=== PATIENT | female | born 2000 | race Caucasian/White ===

== ENCOUNTER 2024-10-31 14:08 | Inpatient (IN) | payer MEDICAID, SELFPAY ==
--- OUTSIDE RECORDS SUMMARY | 2024-10-31 14:21 | XMS_ITS | Encounter Summary ---
Author Organization [facility] Address [address] [place] [id number] Phone Care Team Providers Care Book Illustrator Name Role Phone Unavailable Primary Care Provider Unavailabl e Reason for Visit * Reason Comments Med Refill Encounter Details Date Type Department Care Team ([facility] st Contact Info) Description 07/03/2019 Refill [facility] [address] [place] [id number] Sofya Alvarez MD [address] [place] [address] [phone] Dysmenorrhea Social History Tobacco Use Types Packs/Day Years Used Date Smoking Tobacco: Some Days Smokeless Tobacco: Never Comments:never smoker Alcohol Use Standard Drinks/Week Comments No 0 (1 standard drink = 0.6 oz pur e alcohol) Hunger/Food Answer Date Recorded No 04/13/2019 Stable Housing Answer Date Recorded No 06/10/2019 Transportation Concerns Answer Date Rec orded No 04/13/2019 Hazards in Home Answer Date Recorded No 04/13/2019 Financing Utilities Answer Date Recorde d No 04/13/2019 Safety at Home Answer Date Recorded No 04/13/2019 Outside Support Answer Date Recorded No 04/13/2019 Understanding Health Concerns Answer Da te Recorded No 04/13/2019 Financing Health Concerns Answer Date R ecorded No 04/13/2019 Missing School or Work Answer Date Gregory rded No 04/13/2019 Comments Unknown Sex and Gender Information Value Date Recorded Sex Assigned at Female 04/13/2019 8:32 AM EST Legal Sex Female 8:08 PM EST Gender Identity Female 04/13/2019 8:32 AM EST Sexual Orientation Straight 04/13/2019 8: 32 AM EST documented as of this encounter Miscellaneous Notes * Telephone Encounter - Sofya Alvarez MD - 07/03/2019 6:20 PM EST On a different BCP . * Telephone Encounter - Betty Parkinson RN - 07/03/2019 11:01 AM EST CPE 04/13/19. Sending to for approval and scripting. documented in this encounter Plan of Treatment Not on file documented as of this encounter Visit Diagnoses Diagnosis Dysmenorrhea documented in this encounter
[2024-10-31 14:53] VITALS: BP 128/84; PULSE 105; RESP 16; TEMP 37.4; O2SAT 105
[2024-10-31 14:56] VITALS: BMI 18.8
--- NOTE | 2024-10-31 16:19 | P.CONHOSP_ITS ---
History of Present Illness Data of Consult Service Date: 10/31/24 Primary Care Provider: Unknown Physician HPI Reason for consult: Medical H and P 24-year-old female with a past medical history of depression and anxiety, presented to [facility] for an evaluation of increased depression and suicidal ideation. She is admitted inpatient psychiatric unit for further care. Reports a social history of EtOH. History of cocaine use last use 4 years ago. On review her CBC and BMP were both within normal limits negative HGB. Negative tox screen. She denies any health concerns at this time. Denies any past medical history other than what is mentioned. Review of Systems Review of Systems: Denies any shortness of breath, chest pain, dizziness, lightheadedness, abdominal pain or discomfort, nausea vomiting or diarrhea PMFSH Date of last menstrual period: 10/30/24 Patient : No Family History (Updated 10/31/24 @ 16:22 by Trisha Jimenez DNP) Mother ETOH abuse Social History Household Members: Family Household Members Other:: 3 Housing: House Do you presently have visiting nurse or other home services: No Patient Tobacco Use Status: Current everyday Tobacco user Smoked in Last 30 Days: Yes e-Cigarette/Vaping Use: Currently Using Frequency of e-Cigarette/Vaping Use: daily Patient Interested in Nicotine Replacement: No Patient Given Instructions on How to Stop Smoking: Yes Date Education Initiated: 10/31/24 Second Hand Smoke Exposure: No Have you been hit, kicked, punched, or otherwise hurt by someone within the past year? If so, by whom?: No Do you feel safe in your current relationship?: No Current Relationship Is there a partner from a previous relationship who is making you feel unsafe now?: No Are you made to feel afraid or neglected: No Spiritual Healthcare Practices: None Sikh Healthcare Practices: None Cultural Healthcare Practices: none Advance Directives: No Advance Directives Information Provided: No Do you have a plan to hurt others: No Plan Recently lost weight without trying: No Eating poorly because of decreased appetite: No Nutrition Risks: No Nutritional Risk Patient : No : No Poor oral hygiene: No Meds Allergies Allergy/AdvReac Type Severity Reaction Status Date / Time No Known Allergies Allergy Verified 10/31/24 14:48 Active Medications: Current Medications Acetaminophen (Acetaminophen 325 Mg Tablet) 650 mg PO Q6H PRN PRN Reason: Headache/Pain, Scale 1-10 Al Hydroxide/Mg Hydroxide (Magnesium Hydrox/Alum Hydrox 30 Ml Oral.Susp) 30 ml PO Q6H PRN PRN Reason: Heartburn/Nausea Hydroxyzine HCl (Hydroxyzine Hcl 25 Mg Tablet) 25 mg PO Q6H PRN PRN Reason: mild anxiety Magnesium Hydroxide (Milk Of Magnesia 30 Ml Oral.Susp) 30 ml PO DAILY PRN PRN Reason: Constipation Nicotine (Nicotine 21 Mg Patch.Td24) 21 mg TRANSDERMA DAILY ESTHER Nicotine Polacrilex (Nicotine Polacrilex 2 Mg Gum) 4 mg BUCCAL Q2H PRN PRN Reason: Nicotine Cravings Olanzapine (Olanzapine 5 Mg Tablet) 5 mg PO Q4H PRN PRN Reason: agitation Trazodone HCl (Trazodone Hcl 50 Mg Tablet) 50 mg PO BEDTIME MRX1 PRN PRN Reason: Insomnia Physical Exam Vital Signs and Narrative: Vital Signs: Last Vital Signs Temp 99.3 F 10/31/24 14:53 Pulse 105 H 10/31/24 14:53 Resp 16 10/31/24 14:53 BP 128/84 10/31/24 14:53 Pulse Ox 105 H 10/31/24 14:53 O2 Del Method Room Air 10/31/24 14:53 BMI result Body Mass Index 18.8 Alert and oriented X3, able to give good history. Neuro: CN II-X11 intact, no deficits, visual acuity intact EYES: PERRLA, EOM intact ENT: hearing intact, uvula midline, lips moist Cardiac: S1 S2 RRR, no edema in Lower ext Pulmonary: lungs clear to auscultation, No increased WOB. Abdominal: BS active in all 4 quadrants, no guarding or tenderness MSK: Strength 5/5 upper and lower extremities : Deferred Extremities: Moves all extremity Psych: mood stable, quiet and cooperative Skin: Warm and dry, Intact Assessment and Plan (1) Depression: Status: Acute Plan Depression and anxiety/SI Treatment per psychiatry team Thank you for allowing me to participate in the care of this patient. Signing off at this time. Please reconsult of any acute complaints or issues arise
--- NOTE | 2024-10-31 16:34 | PC.ADMIT ---
Nursing admission note: 24 year old female DX;
--- NOTE | 2024-10-31 16:35 | PC.ADMIT ---
Nursing admission note: 24 year old female DX: depression, unspecified. Referred for treatment by [facility]. Patient had presented to [facility] for evaluation of SI. Aida self presented to the hospital requesting help with her increasing depression. Reported +SI with concern she would act on it. Patient signed conditional voluntary for admission. A+O x3. Patient calm and cooperative with admission process. Good eye contact, good attn to ADL. Engaged easily, presented with depressed mood, congruent affect. Reports depression is 10/10 with continued suicidal thoughts. Thinks about driving off the road. Agrees to engage staff if feeling she will act on ideation on unit. Reports feeling depressed for a long time . Endorses anergia, avolition. Difficulty with concentration, distractibility, poor focus. Thoughts linear and organized during admission process. Endorses anxiety, stating at times, she will need to touch surfaces x amount of times for thought to stop. Reports she has health anxiety worries she has something . Reports she will get mad at work if things are not in certain order. Reports at night she will feel like someone is watching her. Feels like she hears her name being called. At times feels like spiders are crawling on her. 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 Reports poor sleep, difficulty falling and maintaining sleep. Denies appetite disturbances. Speech is soft in tone. Denies drug use, history of cocaine last use 4 years ago. Social use of alcohol. TOX screen negative. Uses vape, declines NRT at this time. HCG negative. Goal for admission is to be evaluated, placed on suggested medications, and be referred for aftercare. NKA. No acute medical problems reported. See nursing assessment, risis evaluation for complete details.
[2024-10-31 20:00] VITALS: BP 126/62; PULSE 75; RESP 16; TEMP 37.1; O2SAT 97
[2024-11-01 07:20] VITALS: BP 105/55; PULSE 89; RESP 16; TEMP 36.8; O2SAT 97
[2024-11-01 08:32] LABS: Alanine Aminotransferase 6 U/L (0-31); Albumin Level 4.4 g/dL (3.5-5.0); Alkaline Phosphatase 49 U/L (39-117); Anion Gap 15 (12-20); Aspartate Amino Transferase 17 U/L (5-31); Bilirubin Total 0.8 mg/dL (0.0-1.0); Blood Urea Nitrogen 21 mg/dL (9-16); Calcium 9.2 mg/dL (8.4-10.2); Carbon Dioxide 22 mmol/L (22-29); Chloride 106 mmol/L (96-108); Cholesterol 164 mg/dL (<200); Estimated Glomerular Filt Rate > 60; Glucose Random 65 mg/dL (60-115); HDL Cholesterol 43 mg/dL (>40); LDL Cholesterol Calculated 102 mg/dL (<100); Potassium 3.8 mmol/L (3.3-5.1); Sodium 139 mmol/L (135-145); Total Protein 7.2 g/dL (6.5-8.0); Triglycerides 96 mg/dL (<150)
[2024-11-01 08:33] LABS: Estimated Average Glucose 103 mg/dL; Hemoglobin A1C 121.4762 umol/L; Hemoglobin A1c % 5.2 % (<6.0); Total Hemoglobin (HGBA1C) 3677.0776 umol/L
[2024-11-01] MEDS: Nicotine 21 MG PATCH.TD24 TRANSDERMA (09:44)
--- NOTE | 2024-11-01 09:59 | P.PNPSI_ITS ---
Subjective Subjective Date of Service: 11/01/24 Reason For Visit: SI Interim History: pt arrived on unit at 1417 yesterday afternoon, admission orders and CV completed by Mila Miranda NP, yesterday afternoon. being seen in coverage today for HARSH Miranda. Hx and Sx reviewed with pt. pt reporting h/o OCD Sx as well as depression and anxiety. recently having thoughts such as, touch this surface and you won't get sick. after touching the surface the thoughts stop and anxiety is relieved. she reported having tried lexapro in her teens, which she did not find terribly helpful, and then prozac more recently, also not apparently terribly helpful. she stopped all medication about 9 months ago due to feeling lack of efficacy. she reports she was on prozac for 2-3 years and started at 20 mg daily and increased to 30 mg daily at the highest. she was educated re typical need for high-dose SSRIs to address OCD Sx. AH telling her to fall on her knife noted, pt reported that only developing in recent months and never before. MD suggested possibility of using low-dose atypical antipsychotic to address AH as well as potentially for antipsychotic efficacy. plan made to start prozac 20 for the next 2 days, then increase to 40 mg daily. pt is to consider whether to take a more conservative approach as mentioned or to add abilify to the prozac prior to discharge. pt aware she will be working with Ruth and to expect to meet with her tomorrow. Mental Status Exam Mental Status Exam Narrative: adequately dressed and groomed. cooperative. no PMA/PMR. speech nml rate, amount, latency. decr loudness and prosody. thoughts linear and logical without evidence of delusions or paranoia. affect mildly flexible, normo- intense, non-labile. mood all right. denies SI/HI/AVH today. Diagnostics Vital Signs (24Hr): Vital Signs - 24 hr 10/31/24 14:53 10/31/24 20:00 11/01/24 07:20 Temperature 99.3 F 98.7 F 98.2 F Pulse Rate 105 H 75 89 Respiratory Rate 16 16 16 Blood Pressure 128/84 126/62 105/55 L Pulse Oximetry 105 H 97 97 Oxygen Delivery Method Room Air Room Air Room Air BMI result Body Mass Index 18.8 Labs 11/01/24 07:46 Labs: Laboratory Results - last 48 hr 11/01/24 07:46 Sodium 139 Potassium 3.8 Chloride 106 Carbon Dioxide 22 Anion Gap 15 BUN 21 H Creatinine 0.67 Estim Creat Clear Calc 103.0 Estimated GFR > 60 Random Glucose 65 Estimat Average Glucose 103 Hemoglobin A1c % 5.2 Calcium 9.2 Total Bilirubin 0.8 AST 17 ALT 6 Alkaline Phosphatase 49 Total Protein 7.2 Albumin 4.4 Triglycerides 96 Cholesterol 164 LDL Cholesterol, Calc 102 H HDL Cholesterol 43 Medications Medications Current Medications Acetaminophen (Acetaminophen 325 Mg Tablet) 650 mg PO Q6H PRN PRN Reason: Headache/Pain, Scale 1-10 Al Hydroxide/Mg Hydroxide (Magnesium Hydrox/Alum Hydrox 30 Ml Oral.Susp) 30 ml PO Q6H PRN PRN Reason: Heartburn/Nausea Hydroxyzine HCl (Hydroxyzine Hcl 25 Mg Tablet) 25 mg PO Q6H PRN PRN Reason: mild anxiety Magnesium Hydroxide (Milk Of Magnesia 30 Ml Oral.Susp) 30 ml PO DAILY PRN PRN Reason: Constipation Nicotine (Nicotine 21 Mg Patch.Td24) 21 mg TRANSDERMA DAILY ESTHER Last Admin: 11/01/24 09:44 Dose: 21 mg Nicotine Polacrilex (Nicotine Polacrilex 2 Mg Gum) 4 mg BUCCAL Q2H PRN PRN Reason: Nicotine Cravings Olanzapine (Olanzapine 5 Mg Tablet) 5 mg PO Q4H PRN PRN Reason: agitation Trazodone HCl (Trazodone Hcl 50 Mg Tablet) 50 mg PO BEDTIME MRX1 PRN PRN Reason: Insomnia Allergies Allergies Allergy/AdvReac Type Severity Reaction Status Date / Time No Known Allergies Allergy Verified 10/31/24 14:48 Assessment & Plan Assessment & Plan (1) Depression: Status: Acute Code(s): F32.A - Depression, unspecified Plan start prozac 20 mg x2 days, then increase to 40 mg daily. T/C augmentation with low-dose atypical antipsychotic such as abilify. Reason for continued inpatient stay Substantial Risk for: harm to self and inability to function Time Spent With Patient Time: Total time managing care of this patient today __55__ minutes.
[2024-11-01] MEDS: FLUoxetine HCl 20 MG CAPSULE PO (14:02)
[2024-11-01 21:08] VITALS: BP 118/63; PULSE 104; RESP 16; O2SAT 98
[2024-11-01] MEDS: traZODone HCL 50 MG TABLET PO (21:19)
[2024-11-02 07:00] VITALS: BMI 18.6
[2024-11-02 07:40] VITALS: BP 110/63; PULSE 90; RESP 16; TEMP 37.1; O2SAT 95
[2024-11-02] MEDS: FLUoxetine HCl 20 MG CAPSULE PO (08:25)
[2024-11-02] MEDS: Nicotine 21 MG PATCH.TD24 TRANSDERMA (08:25)
--- NOTE | 2024-11-02 15:38 | P.HPPS_ITS ---
[facility] Date of Service: 11/02/24 Chief Complaint: SI Sources of Information: patient interviewed, chart reviewed and crisis/core team assessment reviewed HPI Subjective Notes: Alexander Warning and Conditional Voluntary Narrative: Patient is a 24-year-old female with history of MDD and PTSD who self presented to ER due to suicidal ideation secondary to increased depression. Per crisis report, patient reported to hospital requesting help with her increasing depression. She reports suicidal ideation with concerned that she will act on this. Patient reports suicidal thoughts come and go. Denies HI/VH/AH. She reports normal sleep and appetite. Patient reports she has been experiencing depression for years which has worsened over the past couple of years. She denies any specific trigger to increased depression. She also reports suicidal ideation for many years . Denies any plan or intent. 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 She is unable to determine if this is a hallucination or intrusive thought. History of taking Lexapro and Zoloft. Utox negative. During admission assessment, patient presents alert and oriented x3. Calm and cooperative. Patient reports for the past year she has been feeling more depressed than usual. Patient stated, I know it's not right but, the suicide thoughts keep popping into my head. I'm stressed with work and life. I'm disappointed in myself for not going to college. I have OCD thoughts that I have to touch something a certain amount of times to not get sick . Patient reports she would like to find a therapist near her home. Patient stated, I need to learn to not work so much. My family and friends keeping going. I know that my life is worth living . Patient denies SI/HI/VH/AH. Patient signed 3 day notice that is up on 11/03/2024. Past Psychiatric History: This is patient's 1st inpatient psychiatric hospitalization. Outpatient psychiatrist: Dr. Wheeler Does not have outpatient therapist. Denies history of suicide attempts. History of cutting in high school. Medical Evaluation Reviewed: Yes PMF Family History: Mother: Depression Social History: Lives with mother, brother and sister. Single. No kids. Full- time product support manager. Substance History: History of cocaine use. Four years sober. Denies any other substance use. U tox negative. Trauma History: Yes Diagnostics Vital Signs (24Hr): Vital Signs - 24 hr 11/01/24 21:08 11/02/24 07:40 Temperature 98.7 F Pulse Rate 104 H 90 Respiratory Rate 16 16 Blood Pressure 118/63 110/63 Pulse Oximetry 98 95 Oxygen Delivery Method Room Air Room Air BMI result Body Mass Index 18.6 Labs 11/01/24 07:46 Labs: Laboratory Results - last 48 hr 11/01/24 07:46 Sodium 139 Potassium 3.8 Chloride 106 Carbon Dioxide 22 Anion Gap 15 BUN 21 H Creatinine 0.67 Estim Creat Clear Calc 103.0 Estimated GFR > 60 Random Glucose 65 Estimat Average Glucose 103 Hemoglobin A1c % 5.2 Calcium 9.2 Total Bilirubin 0.8 AST 17 ALT 6 Alkaline Phosphatase 49 Total Protein 7.2 Albumin 4.4 Triglycerides 96 Cholesterol 164 LDL Cholesterol, Calc 102 H HDL Cholesterol 43 Meds/Allergies Meds Home Medications ?Medication ?Instructions ?Recorded ?Confirmed ?Type No Known Home Meds 10/31/24 10/31/24 History Allergies Allergies Allergy/AdvReac Type Severity Reaction Status Date / Time No Known Allergies Allergy Verified 10/31/24 14:48 Mental Status Exam Mental Status Exam Narrative: Pt is alert and oriented; behavior is cooperative and calm; dressed in casual attire; mood is described as depressed ; eye contact appropriate; Speech is normal rate, volume and not pressured; thought process is organized; Thought content is on tx/discharge; denies SI/HI/VH/AH. Assessment & Plan Assessment & Plan (1) MDD (major depressive disorder): Status: Acute Code(s): F32.9 - Major depressive disorder, single episode, unspecified (2) PTSD (post-traumatic stress disorder): Status: Acute Code(s): F43.10 - Post-traumatic stress disorder, unspecified Plan Patient is a 24-year-old female with history of MDD and PTSD who self presented to ER due to suicidal ideation secondary to increased depression. Plan: CV 15 minute safety checks Started on Prozac 40mg PO daily by Dr. Walton Obtain collateral Encourage groups Discharge planning Patient educated on: diagnosis, medication risk/benefits and therapeutic strategies Reason for continued inpatient stay Substantial Risk for: med/psych decompensation Statement Statement: I have reviewed the history and physical and performed a pertinent examination on my patient. No changes have occurred unless specified. If the History and Physical was not performed prior to admission, the Hospitalist's service will be consulted for completing the admission physical. Time Spent With Patient Time: Total time managing care of this patient today _60___ minutes.
[2024-11-02 19:44] VITALS: BP 110/64; PULSE 73; RESP 16; TEMP 37.6; O2SAT 97
[2024-11-02] MEDS: traZODone HCL 50 MG TABLET PO (22:10)
[2024-11-03 07:59] VITALS: BP 130/60; PULSE 124; RESP 18; TEMP 36.9; O2SAT 97
[2024-11-03] MEDS: FLUoxetine HCl 20 MG CAPSULE 40 MG PO (08:04)
--- NOTE | 2024-11-03 09:39 | PM.PSYDC ---
DS: Providers Provider Date of Service: 11/03/24 Date of admission: 10/31/24 14:08 Date of discharge: 11/03/24 Primary care physician: Unknown Physician Admitting clinician: Mila Miranda Attending physician on admission: Germán Becerra Consults: 10/31/24 14:48 Consult to Hospitalist Routine Comment: Consulting Provider: [facility] Reason For Exam: new pt, H&P Attending physician on discharge: Germán Becerra Discharging clinician: Mila Miranda DS: Diagnosis Discharge Diagnosis (1) MDD (major depressive disorder): Status: Acute (2) PTSD (post-traumatic stress disorder): Status: Acute DS: Medications Discharge Medications Home Medications: Home Medications ?Medication ?Instructions ?Recorded ?Confirmed No Known Home Meds 10/31/24 10/31/24 Mental Status Exam Mental Status Exam Narrative: Pt is alert and oriented; behavior is cooperative and calm; dressed in casual attire; mood is described as good ; eye contact appropriate; Speech is normal rate, volume and not pressured; thought process is organized; Thought content is on tx/discharge; denies SI/HI/VH/AH. Data Data Completed and Pending Completed studies during hospitalization [Text1]: 11/01/24 07:46 Sodium 139 Potassium 3.8 Chloride 106 Carbon Dioxide 22 Anion Gap 15 BUN 21 H Creatinine 0.67 Estim Creat Clear Calc 103.0 Estimated GFR > 60 Random Glucose 65 Estimat Average Glucose 103 Hemoglobin A1c % 5.2 Calcium 9.2 Total Bilirubin 0.8 AST 17 ALT 6 Alkaline Phosphatase 49 Total Protein 7.2 Albumin 4.4 Triglycerides 96 Cholesterol 164 LDL Cholesterol, Calc 102 H HDL Cholesterol 43 DS: Summary Hospital Course Hospital Course: Patient is a 24-year-old female with history of MDD and PTSD who self presented to ER due to suicidal ideation secondary to increased depression. Per crisis report, patient reported to hospital requesting help with her increasing depression. She reports suicidal ideation with concerned that she will act on this. Patient reports suicidal thoughts come and go. Denies HI/VH/AH. She reports normal sleep and appetite. Patient reports she has been experiencing depression for years which has worsened over the past couple of years. She denies any specific trigger to increased depression. She also reports suicidal ideation for many years . Denies any plan or intent. 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 She is unable to determine if this is a hallucination or intrusive thought. History of taking Lexapro and Zoloft. Utox negative. During admission assessment, patient presents alert and oriented x3. Calm and cooperative. Patient reports for the past year she has been feeling more depressed than usual. Patient stated, I know it's not right but, the suicide thoughts keep popping into my head. I'm stressed with work and life. I'm disappointed in myself for not going to college. I have OCD thoughts that I have to touch something a certain amount of times to not get sick . Patient reports she would like to find a therapist near her home. Patient stated, I need to learn to not work so much. My family and friends keeping going. I know that my life is worth living . Patient denies SI/HI/VH/AH. Patient signed 3 day notice that is up on 11/03/2024. pt reporting h/o OCD Sx as well as depression and anxiety. recently having thoughts such as, touch this surface and you won't get sick. after touching the surface the thoughts stop and anxiety is relieved. she reported having tried lexapro in her teens, which she did not find terribly helpful, and then prozac more recently, also not apparently terribly helpful. she stopped all medication about 9 months ago due to feeling lack of efficacy. she reports she was on prozac for 2-3 years and started at 20 mg daily and increased to 30 mg daily at the highest. she was educated re typical need for high-dose SSRIs to address OCD Sx. AH telling her to fall on her knife noted, pt reported that only developing in recent months and never before. MD suggested possibility of using low-dose atypical antipsychotic to address AH as well as potentially for antipsychotic efficacy. plan made to start prozac 20 for the next 2 days, then increase to 40 mg daily. pt is to consider whether to take a more conservative approach as mentioned or to add abilify to the prozac prior to discharge. Patient reports feeling good and ready to return home. Pt denies SI/HI/VH/AH. She plans on following up with her outpatient providers. 3 day up 11/03/24. Status at Discharge Cognitive/behavioral status at discharge: Patient has insight and demonstrates good judgment in terms of wanting to pursue treatment. Patient has a safety plan that includes presenting to the closest ER or calling 911 if feeling unsafe. Functional status at discharge: independent ambulation Overall status at discharge: patient is back to baseline Time Spent with Patient Time attestation: Total time managing care of this patient today _20___ minutes. Time spent: Less than 30 minutes Discharge Plan Discharge Anticipated Discharge Date/Time: 11/03/24 12:00 Patient Disposition: Home, Self-Care Discharge Diagnosis: MDD, PTSD Referrals: Therapy & Psychiatry [Other] - 1 Week (*Once you have insurance coverage, you can follow up with the agency above in order to obtain outpatient mental health providers. ) Physician,Unknown J [Primary Care Provider] - 1 Week Discharge Medications: New fluoxetine 40 mg capsule 40 mg PO DAILY 30 Days Qty: 30 0RF trazodone 50 mg Tablet 50 mg PO BEDTIME PRN (Reason: Insomnia) 30 Days Qty: 30 0RF Discharge Orders: Discharge Order (Routine); Ordered 11/03/24 Ordered By: Mila Miranda Diet: Regular diet Activity on Discharge: As tolerated Stand Alone Forms: Patient Portal Discharge page, Community Support Print Language: Uruguayan Care Plan Goals: Maintain mood and safe behaviors Take medications as prescribed Practice coping skills Continue with outpatient providers and reach out to them as needed Health Concerns: Mood stability and behaviors Plan of Treatment: Follow up with your PCP, psychiatric provider and other outpatient providers regarding above concerns Take medications as prescribed Assessment: Patient has insight and demonstrates good judgment in terms of wanting to pursue treatment. Patient has a safety plan that includes presenting to the closest ER or calling 911 if feeling unsafe. Discharge Date/Time: 11/03/24 12:17
== END 2024-11-03 12:17 | disposition home or self-care (01) | DRG 754 ==
PROVIDERS: Admitting Provider Psychiatry & Neurology Psychiatry; Responsible Provider Registered Nurse; Visit Provider Psychiatry & Neurology Psychiatry
DX: F32.9 Major depressive disorder, single episode, unspecified (principal); R45.851 Suicidal ideations; Z91.148 Patient's other noncompliance with medication regimen for other reason; F17.210 Nicotine dependence, cigarettes, uncomplicated; Z71.6 Tobacco abuse counseling; F43.10 Post-traumatic stress disorder, unspecified; Z79.899 Other long term (current) drug therapy
CPT/HCPCS: 36415; 80053; 80061; 83036

== ENCOUNTER → 2024-10-31 14:08 | Outpatient (BNV) | payer OTHER, SELFPAY | PROVIDERS: Admitting Provider Psychiatry & Neurology Psychiatry; Visit Provider Psychiatry & Neurology Psychiatry | DX: F32.2 Major depressive disorder, single episode, severe without psychotic features (principal) | CPT/HCPCS: 99233 ==

== ENCOUNTER → 2024-10-31 14:08 | Outpatient (BNV) | payer SELFPAY | PROVIDERS: Admitting Provider Psychiatry & Neurology Psychiatry; Visit Provider Nurse Practitioner Family | DX: Z00.8 Encounter for other general examination (principal) | CPT/HCPCS: 99499 ==